=== PATIENT | female | born 1940 | race Caucasian/White ===

== ENCOUNTER 2024-11-07 18:15 | Inpatient (IN) | payer MEDICARE, SELFPAY ==
[2024-11-07] VITALS (12 sets, daily range): BP systolic 110–135; BP diastolic 67–93
--- NOTE | 2024-11-07 13:43 | ED.GENMED ---
History of Present Illness
General
Chief Complaint: Breathing Problem
Time Seen by Provider: 11/07/24 13:38
History of Present Illness
History of Present Illness:
84-year-old female presents the emergency department from [facility] due to acute mental status change. History is otherwise limited on arrival. Patient was also noted to be hypoxic today. Documentation from her facility does
not indicate any significant medical problems however upon arrival the patient's daughter, it appears she has had prior coronary disease with MA and required pacemaker placement for unknown reasons greater than 10 years ago. Pacemaker was not
functioning and the patient had previously declined to undergo generator change. The brand of the pacemaker is not known at this time. Patient's daughter also indicates that she has breast cancer but has declined treatment at this point.
Review of Systems
Review of Systems
Allergies reviewed?: Yes
All Other Systems: ROS reviewed and negative except as documented in HPI and ROS
Phy Exam
Physical Exam
Physical Exam:
GEN: Ill-appearing, tachypneic, acute respiratory distress
HEENT: Oral mucosa moist, no scleral icterus
Cardiac: Regular rate and rhythm
Lung: Tachypneic with pursed lip breathing, diffuse expiratory rales heard throughout
MSK: No gross deformity or injuries
Skin: Good color, no pallor or jaundice, no rashes
Neuro: Alert, oriented to self only
Psych: Calm, cooperative
Scores
Heart Failure Risk
Heart Failure Risk Score: Not Applicable
Course
Orders/Labs/Results
Orders:
Orders
11/07/24 Lunch
Regular
At Your Request: Limited Participation
Does patient need a safe tray?: No
11/07/24 13:42
Electrocardiogram (*1) Urgent
Reason for Study: Shortness of Breath
EKG- Treatment ONCE
CR Chest Portable - 1 View Urgent
Comment:
Reason For Exam: SOB
Reason Study Needs to be Portable: Unable to Transport
11/07/24 13:44
Blood Culture Q30M
GEETA Source: Blood/Venous
Specimen Description:
11/07/24 13:45
COVID-19 Antigen Urgent
Source: Nasal Swab
Complete Blood Count/With Diff Urgent
Comprehensive Metabolic Panel Urgent
Lactic Acid Q4H
Comment: CANCEL 2nd LACTIC ACID IF 1st LACTIC ACID IS LESS THAN 2
NT-proBNP Urgent
Troponin I Urgent
Venous Blood Gas Urgent
%Oxygen/Room Air: 85
Influenza A+B Rapid Molecular Urgent
GEETA Source: Nasal Swab
Specimen Description:
11/07/24 13:56
Urinalysis Reflex To Culture Urgent
Date Specimen was Collected: 11/07/24
Time Specimen was Collected: 13:46
Urine Microscopic Reflex Cult Urgent
Blood Culture Q30M
GEETA Source: Blood/Venous
Specimen Description:
11/07/24 14:36
CT Chest PE Study Urgent
Comment:
Reason For Exam: hypoxia
11/07/24 16:16
Furosemide [Lasix] 40 mg IV ONCE ONE
11/07/24 17:58
Admit/Transfer Patient As Directed
Co-Sign Provider:
Level of Care: Inpatient admission
Assign to:: Medical/Surgical
Physician / Group: Hospitalist
Diagnosis: CHF
Reason for Hospitalization: CHF
Expected length of stay greater than two midnights?: Yes
ELOS- Estimated Length of Stay in days: 3
I certify the patient meets the requirements for IP care: Yes
PRN Pain Medication Management As Directed
May give lesser potent ordered pain med per pt: Yes
preference::
Protocol:: Medication orders for pain may be administered in a
manner that supports deferring to patient preference
when the pt is:
-Requesting an ordered lesser potent pain medication.
Least to most potent pain medications are defined as:
acetaminophen < NSAID < tramadol < opioids (morphine,
oxycodone, hydromorphone).
- Requesting a lesser dose of the same medication IF
ORDERED.
- Requesting a less intrusive route of administration
if both routes are prescribed by the provider (PO <
IV).
11/07/24 17:59
Code Status As Directed
Resuscitation Status: Do not resuscitate
Reached after discussion with pt or family/Healthcare POA: Yes
DNR Bracelet Application ONCE
11/07/24 18:10
Lorazepam [Ativan] 0.5 mg IV Q2HPRN PRN
11/07/24 18:42
Acetaminophen [Tylenol/Feverall] 650 mg RECTAL Q4HPRN PRN
Acetaminophen [Tylenol] 650 mg PO Q4HPRN PRN
Bisacodyl [Dulcolax] 10 mg RECTAL DAILYPRN PRN
Glycopyrrolate [Robinul] 0.2 mg IV Q4HPRN PRN
Haloperidol Lactate [Haldol] 1 mg IV Q4HPRN PRN
Morphine Sulfate 1 mg IV Q1HPRN PRN
Morphine Sulfate See Protocol IV [id number] PRN
Begin protocol on step:: refer to Morphine infusion order
Morphine Sulfate 100 mg/100 ml [Morphine] 100 mg in 100 ml IV PER PROTOCOL
Begin protocol on step:: 1
Ondansetron Injectable [Zofran] 4 mg IV Q8HPRN PRN
Pharmacy Request to Place See Dose Instructions IV DIRECTED
11/07/24 18:42
Transfer Patient As Directed
Transfer to: Medical/Surgical
Case Management Consult ONCE
Case Management Consult: Hospice
Hospice: Evaluation and treat
VTE Contraindication Routine
VTE Mechanical Device Contraindication: Comfort Care mgmt
Pharmocologic Contraindication: Comfort Care mgmt
Activity As Directed
Activity Level: Out of Bed-Early Mobility
Comfort Measures As Directed
Comment: Pain and Dyspnea assessment every 4 hours
End of Life Symptom Assessment Q4
INT (Intravenous Needle Therapy) As Directed
Vital Signs As Directed
Frequency: Per unit guidelines
Abnormal Lab Results
11/07/24 11/07/24
13:45 13:56
WBC 4.3 L 10^3/uL
(4.8-10.8)
MCHC 32.3 L g/dL
(33.0-37.0)
Absolute Lymphs (auto) 0.6 L 10^3/uL
(1.2-3.4)
Neutrophils % 79.4 H %
(42.2-75.2)
Lymphocytes % 14.3 L %
(20.5-51.1)
VBG pH 7.29 L
(7.32-7.43)
VBG pCO2 57 H mmHg
(35-48)
VBG pO2 87 H mmHg
(30-50)
VBG HCO3 27.4 H mmol/L
(22-27)
BUN 31 H mg/dl
(7-17)
Glucose 136 H mg/dl
(70-99)
Troponin I 0.063 H* ng/ml
Urine Ketones 1+ A
(Negative)
Urine Bacteria (Reflex) Few A
(Negative)
Urine Albumin (Reflex) 3+ A
(Neg - Trace)
11/07/24 13:45
11/07/24 13:45
Vital Signs
Initial and Last Documented VS:
Initial Vital Signs
Temp Pulse Resp Pulse Ox
98 F 93 16 85
11/07/24 13:26 11/07/24 13:26 11/07/24 13:26 11/07/24 13:26
Last Documented Vital Signs
Temp Pulse Resp BP Pulse Ox
97.5 F 67 24 127/66 90
11/07/24 23:01 11/08/24 07:10 11/08/24 07:10 11/08/24 07:10 11/08/24 07:10
MDM/Problems Addressed
MDM/Problems Addressed:
Attempted pacemaker interrogation however as the device is not functioning there may not be enough battery life to perform this, unfortunately her attempts were unsuccessful. Chest x-ray shows bibasilar effusions but no evidence for infiltrate.
Her workup is most consistent with acute CHF however given the history of untreated breast cancer patient will be sent for a CT of the chest to rule out pulmonary embolism. Will be hospitalized for further management thereafter. Will sign out to
oncoming shift for further disposition pending CT
*Critical Care Note
Total Time (30-74mins, 75-104mins- exclusive of procedures): Not Applicable
ED Attending Note
-
Portions of this chart may have been created with voice recognition software.� Occasional wrong word or��sound alike� substitutions may have occurred due to the inherent limitations of voice recognition software.
Discharge Plan
Departure
Patient Disposition: Admit
Date of Disposition: 11/07/24
Time of Disposition: 17:24
Presentation/result/management discussed w/ accepting MD/DO: Hospitalist
Discharge Problem:
Acute CHF (congestive heart failure), Elevated troponin I level, Acute hypoxemic respiratory failure
Interventions
Interventions:
*Risk Screen - Suicide Last Done: 11/07/24 13:59
*General Assessment Last Done: 11/07/24 13:59
*Neglect/Abuse Screening Last Done: 11/07/24 13:59
*ED- Fall Risk Assessment Last Done: 11/07/24 13:59
*ED COVID-19 Vaccine History Last Done: 11/07/24 13:59
*Nursing Disposition Last Done: 11/07/24 18:31
ED- Cardiac Assessment Last Done: 11/07/24 13:58
ED- Pulmonary Assessment Last Done: 11/07/24 13:58
Discharge Date and Time
Discharge Date/Time: 11/07/24 18:31
[2024-11-07 13:57] LABS: % Basophils 0.5 % (0-2); % Eosinophils 0.2 % (0-6); % Immature Granulocytes 0.2 % (0-0.5); % Lymphocytes 14.3 % (20.5-51.1); % Monocytes 5.4 % (1.7-9.3); % Neutrophils 79.4 % (42.2-75.2); Absolute Lymphocytes 0.6 10^3/uL (1.2-3.4); Absolute Monocytes 0.2 10^3/uL (0.1-0.6); Absolute Neutrophils 3.4 10^3/uL (1.4-6.5); Hematocrit 40.9 % (37.0-47.0); Hemoglobin 13.2 g/dL (12.0-16.0); Mean Corp Hgb Conc. 32.3 g/dL (33.0-37.0); Mean Corpuscular Hgb 30.6 pg (27.0-31.0); Mean Corpuscular Volume 94.9 fL (81.0-99.0); Mean Platelet Volume 10.3 fL (7.4-10.4); Nucleated Red Blood Cells % 0 %; Platelet Count 187 10^3/uL (130-400); Red Blood Cell Count 4.31 10^6/uL (4.20-5.40); Red Cell Dist. Width 13.4 % (11.5-14.5); White Blood Cell Count 4.3 10^3/uL (4.8-10.8)
[2024-11-07 13:59] LABS: Venous Blood Gas B.E. -0.3 mmol/L (-4 to +4); Venous Blood Gas HCO3 27.4 mmol/L (22-27); Venous Blood Gas O2 Sat % 97.5 %; Venous Blood Gas pCO2 57 mmHg (35-48); Venous Blood Gas pH 7.29 (7.32-7.43); Venous Blood Gas pO2 87 mmHg (30-50)
[2024-11-07 14:05] LABS: Urine Albumin 3+ (Neg - Trace); Urine Bilirubin Negative (Negative); Urine Character Clear (Clear); Urine Color Yellow; Urine Glucose Negative (Negative); Urine Ketone 1+ (Negative); Urine Leukocyte Negative (Negative); Urine Nitrite Negative (Negative); Urine Occult Blood Negative (Negative); Urine Specific Gravity 1.025 (<1.030); Urine Urobilinogen Negative (Neg - 1+)
[2024-11-07 14:07] LABS: Venous Blood Gas O2 Therapy 85
[2024-11-07 14:08] LABS: Lactic Acid 1.2 mmol/L (0.7-2.0)
[2024-11-07 14:10] LABS: ALT (SGPT) 19 U/L (0-35); AST (SGOT) 27 U/L (14-36); Albumin 3.8 g/dl (3.5-5.0); Alkaline Phosphatase 56 U/L (38-126); Blood Urea Nitrogen 31 mg/dl (7-17); Calcium 9.9 mg/dl (8.4-10.2); Carbon Dioxide 29 mmol/L (22-30); Chloride 105 mmol/L (98-107); Glucose 136 mg/dl (70-99); Potassium 3.7 mmol/L (3.5-5.1); Sodium 142 mmol/L (135-145); Total Bilirubin 0.5 mg/dl (0.2-1.3); Total Protein 6.4 g/dl (6.3-8.2); eGFR 55.21
[2024-11-07 14:21] LABS: Urine Bacteria Few (Negative); Urine Hyaline Cast >15 /LPF (0-2); Urine Mucus Few; Urine White Cell 0-2 /HPF (0-5)
[2024-11-07 14:22] LABS: Urine Red Blood Cell None Seen /HPF (0-2); Urine Squamous Cell 0-2 /LPF (Few)
[2024-11-07 14:24] LABS: COVID-19 Antigen Negative (Negative)
[2024-11-07 14:26] LABS: NT-proBNP 17800 pg/ml; Troponin I 0.063 ng/ml
[2024-11-07] MEDS: LASIX 40 MG IV (16:40)
--- NOTE | 2024-11-07 18:09 | HPS.HSE ---
Family Physician
-
Family Physician: YVETTE HARRIS MD
Chief Complaint
-
confusion
History of Present Illness
84yo F with PMHx of PPM, CHF, breast CA, HTN brought from SNF with worsening confusion. She was found hypoxic to 85% and with elevated proBNP, concern for CHF. As per daughter bedside (who also her POA) patient had PPM placed 10 years ago and
laterwhen recommended generator replacement - declined it. ALso she willingly stopped taking her BP meds few years back and also declined treatment of the breast CA. HEr breast lump since worsened. As per daughter - her mother was not happy with her
quality of life and was 'ready to go'. As per further conversation: daughter agreeable for comfort measures only. She was explained that it will mean that no blood test, no invasive/noninvasive tests, no procedures and no imaging will be pursued.
Symptomatic treatment of dyspnea, anxiety will be provided only and no other medications for active medical problems will be provided. Daughter verbalized that it is in line with her mother wishes and she is agreeable to this approach.
Medical History
Past Medical History
Past Medical History: Reports Other
Additional Past Medical History:
see HPI
Past Surgical History: Reports Other
Additional Past Surgical History:
See HPI
Social History
Unable to obtain full social history at this time due to: Acuity
Tobacco: Former Smoker
Alcohol: Occasional
Drug: None
Family History
Family History: CAD
Allergies / Home Medications
Allergies reflects when Allergies were last updated in [facility].
Home Medications with original date entered in [facility]
Allergy/Medication List:
Allergies
Allergy/AdvReac Type Severity Reaction Status Date / Time
No Known Allergies Allergy Unverified 11/07/24 13:36
Home Medications
acetaminophen 325 mg tablet 650 mg PO Q6H PRN mild pain 11/07/24
acetaminophen 650 mg rectal suppository 650 mg OR Q4H PRN fever 11/07/24
benzocaine 15 mg-menthol 2.6 mg lozenges (Cepacol Sore Throat (benzocaine-menthol)) 1 maria guadalupe PO Q2H PRN sore throat 11/07/24
clonazepam 1 mg tablet 1 mg PO TID 11/07/24
docusate sodium 100 mg capsule 100 mg PO BIDPRN PRN constipation 11/07/24
ibuprofen 600 mg tablet 600 mg PO TID 11/07/24
melatonin 10 mg tablet 10 mg PO HS 11/07/24
polyethylene glycol 3350 17 gram oral powder packet 17 g PO DAILYPRN PRN constipation 11/07/24
Review of Systems
-
Unable to obtain full review of systems at this time due to: Acuity
History Source: Family
Physical Exam
Vital Signs
Vital Signs
Temp Pulse Resp BP Pulse Ox
98 F 79 19 129/67 97
11/07/24 13:26 11/07/24 16:45 11/07/24 16:45 11/07/24 16:40 11/07/24 16:45
Physical Exam
General: Comfortable and Respiratory Distress; No Chills or Sweats
HEENT: Anicteric, Moist mucous membranes and Atraumatic
Respiratory: Non Labored Respirations; No Wheezes or Rales
Cardiac: S1/S2, Irregular Rhythm and Tachycardia
GI: Soft, Non Tender and Non Distended
Musculoskeletal: No Clubbing, No Cyanosis and No Edema
Skin: Warm; No Rash or Jaundice
Neuro: Awake and Alert; No Oriented
Psych: Calm and Confused
Laboratory Results
-
11/07/24 13:45
11/07/24 13:45
Laboratory Results
Lactic Acid Cancelled 11/07/24 17:45
Total Bilirubin 0.5 mg/dl (0.2-1.3) 11/07/24 13:45
AST 27 U/L (14-36) 11/07/24 13:45
ALT 19 U/L (0-35) 11/07/24 13:45
Alkaline Phosphatase 56 U/L (38-126) 11/07/24 13:45
Troponin I 0.063 ng/ml H* 11/07/24 13:45
Data Reviewed
-
Diagnostic Radiology: Report Reviewed by me
CT Scan: Report Reviewed by me
Lab Data: Labs Reviewed by me
Impression/Plan
-
A/P:
#Acute on chronic unspecified CHF
#b/l minimal pleural effusions
#mild leukopenia
#Troponin elevation
#Acute hypoxic hypercarbic respiratory failure
#s/p PPM
#Breast CA
#Old rib Fx
#Acute metabolic encephalopathy
start symptomatic comfort care: Ativan for anxiety, Haldol for delirium, Morphine for dyspnea and pain
Vasquez as needed if retention
Tylenol for fever
Laxatives if constipation
CM consult to hospice
DVT ppx NA
I have spent at least 75min reviewing chart,test results, communication with family and providing direct patient care
[2024-11-07] MEDS: NSS (PRESERVATIVE FREE) 0.25 ML IV (20:05)
[2024-11-07] MEDS: ATIVAN 0.5 MG IV (20:06)
[2024-11-08] MEDS: ROBINUL 0.2 MG IV (00:03)
[2024-11-08 07:10] VITALS: BP 127/66
--- NOTE | 2024-11-08 15:04 | HOSPNOTE ---
Spoke with daughter Dianne and explained hospice. The patient is from [place] and we are not their preferred. Patient was on [facility] and was discharged for extended prognosis. Since patient is now requiring oxygen is refusing lasix
and is symptomatic I feel would qualify for hospice again. CM is reaching out to [facility] and [facility] and will send referrals. All questions were answered and the daughter was grateful for the information.
[2024-11-08 15:15] VITALS: BP 101/57
--- NOTE | 2024-11-08 15:19 | W.PN.HOSP.TC ---
Today's Communication/Plan
-
anticipate d/c back to with [facility] in the next 1-2 days
Assessment / Plan
Assessment / Plan
pt is an 84 year old female
Acute on chronic unspecified CHF with bilateral minimal pleural effusions -- resulting with acute hypoxemic hypercarbic resp failure (although gas is venous and not appropriate for interpretation of pO2/pCO2 status)--troponin mildly elevated and pro
BNP 17,800--would give lasix daily for now--would hold on ECHO
Hx of Breast CA--pt has declined further treatment
DVT Proph
code status -- DNR
Spoke with daughter at bedside on 11/08/2024--it does not appear that the patient is actively dying--in fact, we talked about whether or not patient would even qualify or want hospice. Hospice was consulted. Patient has stopped all of her cardiac
medications and cancer medications and wishes to be kept comfortable. She can go back to with [facility] if they so choose, especially if she is refusing oxygen and needs it and refusing Lasix and needs it.
Anticipated Discharge: Within 24 hours
Subjective/Interval History
-
Date of Service: November 08, 2024
pt clearly states she wants to go back on hospice
Objective Data
-
Vital Signs:
max temp for 24 hours
11/07/24
13:26
Temp 98 F
Vital Signs
Temp Pulse Resp BP Pulse Ox
97.5 F 67 24 127/66 90
11/07/24 23:01 11/08/24 07:10 11/08/24 07:10 11/08/24 07:10 11/08/24 07:10
I&O
11/07/24 11/08/24 11/09/24
06:59 06:59 06:59
Output Total 500 / 500
Balance -500 / -500
Review of Systems
-
All other systems: Reviewed and negative
Respiratory: Reports Cough and Trouble Breathing
Physical Exam
-
General: Well Developed, Well Nourished and No Apparent Distress
HEENT: Normocephalic, Atraumatic and Oxygen
Respiratory: Crackles
Cardiac: Regular Rhythm, S1/S2 and Murmur
GI: Soft, Nontender, Nondistended and Normal Bowel Sounds
Musculoskeletal: No Clubbing, No Cyanosis and No Edema
Skin: Warm
Neuro: Awake and Alert
--- NOTE | 2024-11-08 15:27 | CM ---
Patient seen at bedside with physician, patient daughter. Patient from [facility] and per daughter had been on [facility] and was discharged form the hospice a while ago. Patient now refusing medications and does not want to continue. CM to
make referral to [facility] and call to [facility] nursing to update. CM will continue to follow for discharge planning needs.
Plan; return to personal care with hospice; pending acceptance
[2024-11-08 16:11] VITALS: BP 98/49
[2024-11-08] MEDS: MORPHINE SULFATE 1 MG IV (16:35)
[2024-11-08] MEDS: LASIX IV (16:40)
[2024-11-08 19:27] VITALS: BP 122/61
[2024-11-09 07:55] VITALS: BP 132/86
--- NOTE | 2024-11-09 10:26 | PN.CDI ---
CDI
- -
CDI:
Physician Documentation Request
Admit Date: 11/07/24 18:15
Dear Doctor Venkata,
Please review the following and provide your response in the progress notes.
Clinical Indicators:
Laboratory Tests
11/07/24
13:45
Troponin I 0.063 H*
Based on the above and your clinical assessment, please clarify in the progress notes, the appropriate diagnosis, if significant, that supports the above abnormalities and additional evaluation, monitoring and/or treatment rendered:
Non ischemic myocardial injury
Abnormal lab value, clinically insignificant
Other(please specify)
Use of terms such as suspected, likely, concern for, or probable (associated with a specific diagnosis that is being evaluated, monitored, or treated as if it exists) are acceptable and can be coded in the inpatient setting, when documented at the
time of discharge.
Thank you,
Magalie Corado RN BSN CCDS
CDI Specialist
Please contact via tiger text
Please use your independent medical judgment in providing your response.
--- NOTE | 2024-11-09 10:27 | CM ---
Addendum entered by Sandra Padilla 11/09/24 16:00:
Michelle updated CM that nurse was coming here now to see patient, daughter in room and aware.
Addendum entered by Sandra Padilla 11/09/24 14:57:
Patient for return to [place] with [facility], patient to return tomorrow at request of the facility. CM will update patient daughter and call back to Michelle at [facility].
Original Note:
Patient accepted by [facility] hospice per Michelle [phone] they will be here to assess patient. CM updated her that patient was on O2. CM will continue to follow for discharge planning needs.
Plan; return to personal care and hospice; [facility] with [facility]
[2024-11-09] MEDS: LASIX 40 MG IV (10:41)
--- NOTE | 2024-11-09 14:54 | W.PN.HOSP.TC ---
Addendum entered and electronically signed by Magalie Hastings MD 11/09/24 16:04:
troponin elevation consistent with nonischemic myocardial injury
Original Note:
Today's Communication/Plan
-
d/c to pt home on hospice
Assessment / Plan
Assessment / Plan
pt is an 84 year old female
Acute on chronic unspecified CHF with bilateral minimal pleural effusions -- resulting with acute hypoxemic hypercarbic resp failure (although gas is venous and not appropriate for interpretation of pO2/pCO2 status)--troponin mildly elevated and pro
BNP 17,800--would give lasix daily for now--would hold on ECHO
Hx of Breast CA--pt has declined further treatment
DVT Proph
code status -- DNR
Spoke with daughter at bedside on 11/08/2024--it does not appear that the patient is actively dying--in fact, we talked about whether or not patient would even qualify or want hospice. Hospice was consulted. Patient has stopped all of her cardiac
medications and cancer medications and wishes to be kept comfortable. She can go back to [facility] with [facility] if they so choose, especially if she is refusing oxygen and needs it and refusing Lasix and needs it.
plan for d/c back to [facility] in AM on hospice with [facility] --waiting for equipment to be delivered
Anticipated Discharge: Within 24 hours
Subjective/Interval History
-
Date of Service: November 09, 2024
pt wants to go back to [facility] on hospice
Objective Data
-
Vital Signs:
max temp for 24 hours
11/09/24
07:55
Temp 97.8 F
Vital Signs
Temp Pulse Resp BP Pulse Ox
97.8 F 68 20 132/86 91
11/09/24 07:55 11/09/24 10:41 11/09/24 07:55 11/09/24 10:41 11/09/24 07:55
I&O
11/08/24 11/09/24 11/10/24
06:59 06:59 06:59
Intake Total 480 / 480
Output Total 500 / 500 100 / 100
Balance -500 / -500 380 / 380
Review of Systems
-
All other systems: Reviewed and negative
Physical Exam
-
General: Well Developed, Well Nourished and No Apparent Distress
HEENT: Normocephalic and Atraumatic; Negative Oxygen
Respiratory: Clear to Auscultation; Negative Wheezes or Rhonchi
Cardiac: Regular Rhythm, S1/S2 and Murmur
GI: Soft, Nontender, Nondistended and Normal Bowel Sounds
Musculoskeletal: No Clubbing, No Cyanosis and No Edema
Neuro: Awake
Psych: Calm
[2024-11-09 19:56] VITALS: BP 126/81
[2024-11-09] MEDS: ATIVAN 0.5 MG IV (23:37)
[2024-11-09] MEDS: NSS (PRESERVATIVE FREE) 0.25 ML IV (23:39)
[2024-11-10 07:58] VITALS: BP 121/67
[2024-11-10] MEDS: LASIX 40 MG IV (09:26)
--- NOTE | 2024-11-10 09:26 | W.PN.HOSP.TC ---
Today's Communication/Plan
-
d/c
Assessment / Plan
Assessment / Plan
pt is an 84 year old female
Acute on chronic unspecified CHF with bilateral minimal pleural effusions -- resulting with acute hypoxemic hypercarbic resp failure (although gas is venous and not appropriate for interpretation of pO2/pCO2 status)--troponin mildly elevated and pro
BNP 17,800--would give lasix daily for now--would hold on ECHO
Hx of Breast CA--pt has declined further treatment
DVT Proph
code status -- DNR
Spoke with daughter at bedside on 11/08/2024--it does not appear that the patient is actively dying--in fact, we talked about whether or not patient would even qualify or want hospice. Hospice was consulted. Patient has stopped all of her cardiac
medications and cancer medications and wishes to be kept comfortable. She can go back to with [facility] if they so choose, especially if she is refusing oxygen and needs it and refusing Lasix and needs it.
d/c back to in AM on hospice with [facility]
Anticipated Discharge: Today
Subjective/Interval History
-
Date of Service: November 10, 2024
no c/o
Objective Data
-
Vital Signs:
max temp for 24 hours
11/09/24
07:55
Temp 97.8 F
Vital Signs
Temp Pulse Resp BP Pulse Ox
97.7 F 74 18 121/67 92
11/10/24 07:58 11/10/24 07:58 11/10/24 07:58 11/10/24 07:58 11/10/24 07:58
I&O
11/09/24 11/10/24 11/11/24
06:59 06:59 06:59
Intake Total 480 / 480 960 / 960
Output Total 100 / 100
Balance 380 / 380 960 / 960
Review of Systems
-
All other systems: Reviewed and negative
Physical Exam
-
General: Well Developed, Well Nourished and No Apparent Distress
HEENT: Normocephalic and Atraumatic; Negative Oxygen
Respiratory: Clear to Auscultation; Negative Wheezes or Rhonchi
Cardiac: Regular Rhythm and S1/S2; Negative Murmur
GI: Soft, Nontender, Nondistended and Normal Bowel Sounds
Musculoskeletal: No Clubbing, No Cyanosis and No Edema
Neuro: Awake
Psych: Calm
--- NOTE | 2024-11-10 09:59 | CM ---
Patient seen at bedside. IMM left with patient, daughter not present. CM reviewed IMM with daughter via phone. Patient daughter email is [email or web address] CM will send IMM. Patient for discharge to [facility] [phone]/fax
[phone]. CM spoke with nursing at [facility] phone number [phone] and all DME to be delivered to personal care by 11am. CM will complete transportation forms and plan for ambulance after 12 noon. CM will continue to follow for
discharge planning needs.
Plan; personal care with hospice;
--- NOTE | 2024-11-10 10:00 | W.HF.CON ---
Heart Failure
- LV Function
Left ventricular function study result: Not documented (Pt declined escalation of treatment)
- ARNI
Patient already on ARNI: No
Heart Failure ARNI Contraindication: Comfort Measures Only
- ACEI/ARB
Patient already on ACEI/ARB: No
Heart Failure ACEI/ARB Contraindication: Comfort Measures Only
- Beta Cintia
Patient already on Evidence Based Beta Cintia: No
Heart Failure Evidence Based Beta Cnitia: Comfort Measures Only
- Mineralocorticord Receptor Antagonist
Patient already on MRA: No
Heart Failure MRA Contraindication: Comfort Measures Only
- SGLT-2 Inhibitor
Patient already on SGLT-2 Inhibitor: No
Heart Failure SGLT-2 Inhibitor Contraindication: Comfort Measures
- NYHA CHF Classification
NYHA CHF Classification Level: Class III - Symptoms w/ min exertion, interferes w/ nml daily activity
- ACC/AHA Stage
ACC/AHA Stage: Stage C: Symptomatic Heart Failure
[2024-11-10 12:08] VITALS: BP 116/82
--- NOTE | 2024-11-11 06:53 | W.DCSUMMARY ---
Discharge Summary
Discharge Data
Date of Admission: 11/07/24
Date of Discharge: 11/10/24
-
Pending Results: No
Hospital Course
Primary care physician : Yvette Devine
Principal Discharge diagnosis : Acute on chronic unspecified congestive heart failure with bilateral pleural effusions
Chronic Discharge diagnosis : History of breast cancer
Hospital Course : Patient was an 84-year-old female who was brought in for worsening confusion, hypoxemia and elevated proBNP. On room air she was found to be 85%. 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
recommended she declined. She also willingly stopped taking her blood pressure medicines and heart medicines a few years back. She declined treatment for breast cancer. She had been on hospice in the past but 'graduated'. It would appear that
she was worse in the emergency department upon admission and comfort measures were recommended to which the daughter agreed. Patient was admitted.
Problem #1: Acute on chronic unspecified congestive heart failure with bilateral pleural effusions. Patient was admitted. The following morning I had a long conversation with the patient and her daughter. Patient and daughter both wanted hospice.
While they were in conversation about what to do and when, Lasix was prescribed. Patient was able to be weaned off oxygen and felt better. Patient and family still want hospice and [facility] was consulted. They have agreed to accept the
patient back to [facility] with their hospice agency. Oral Lasix was prescribed for comfort.
Problem #2: History of breast cancer. This was stable during her hospitalization. She was not on any medications.
Patient is stable for discharge back to her [facility] apartment with hospice. If there are any questions regarding this dictation or her hospital stay, please not hesitate to call. Our office number is [phone].
Important imaging findings :
CHEST X-RAY IMPRESSION:
Small bilateral pleural effusions with associated atelectasis and/or pneumonia.
CT CHEST IMPRESSION:
1. No evidence of pulmonary embolism.
2. Trace left and [id number] right pleural effusions with associated compressive atelectasis.
Discharge Plan
-
Patient Disposition: [facility]
Discharge Diagnosis/Procedures: Acute on chronic unspecified congestive heart failure with bilateral minimal pleural effusions, history of breast cancer
Condition: Fair
Diet: As tolerated and Regular
Activity: As tolerated
Driving Restrictions: No driving
Bathing Restrictions: None
Other Services: Hospice
Referrals:
YVETTE DEVINE MD [Family Provider] - in less than 1 week
Prescriptions:
New
furosemide [Lasix] 40 mg tablet
40 mg PO DAILY Qty: 30 0RF
Continued
acetaminophen 325 mg Tablet
650 mg PO Q6H PRN (Reason: mild pain)
polyethylene glycol 3350 17 gram Powder In Packet
17 g PO DAILYPRN PRN (Reason: constipation)
clonazepam 1 mg Tablet
1 mg PO TID
melatonin 10 mg Tablet
10 mg PO HS
Discontinued
acetaminophen 650 mg Suppository
650 mg GA Q4H PRN (Reason: fever)
docusate sodium 100 mg Capsule
100 mg PO BIDPRN PRN (Reason: constipation)
ibuprofen 600 mg Tablet
600 mg PO TID
Cepacol Sore Throat (diana-men) 15-2.6 mg Lozenge
1 maria guadalupe PO Q2H PRN (Reason: sore throat)
Discharge Orders:
Discharge Patient (As Directed); Ordered 11/10/24
Ordered By: Magalie Hastings
Discharge Date and Time
Discharge Date/Time: 11/10/24 13:14
Print Language: GREENLANDIC
== END 2024-11-10 13:14 | DRG 291 ==
LOC: 4 EAST ACU 18:15
PROVIDERS: Physician Assistant; ADMITTING PHYSICIAN Internal Medicine; ATTENDING PHYSICIAN Internal Medicine; EMERGENCY PHYSICIAN Emergency Medicine; FAMILY PHYSICIAN Internal Medicine
DX: I11.0 Hypertensive heart disease with heart failure (principal); G93.41 Metabolic encephalopathy; J96.01 Acute respiratory failure with hypoxia; J96.02 Acute respiratory failure with hypercapnia; I50.9 Heart failure, unspecified; C50.919 Malignant neoplasm of unspecified site of unspecified female breast; Z66 Do not resuscitate; F41.9 Anxiety disorder, unspecified; Z51.5 Encounter for palliative care; Z87.891 Personal history of nicotine dependence; Z95.0 Presence of cardiac pacemaker; D72.819 Decreased white blood cell count, unspecified; Z11.52 Encounter for screening for COVID-19; I5A Non-ischemic myocardial injury (non-traumatic)
CPT/HCPCS: 71045; 71275; 80053; 81003; 81015; 82805; 83605; 83880; 84484; 85025; 87040; 87502; 87811; 93005; 96374; 99285; Q9967